=== PATIENT | female | born 1960 | race Caucasian/White ===

== ENCOUNTER 2021-02-11 18:06 | Emergency (ER) | payer OTHER ==
[~2021-02-11] VITALS: Ht 167.6 cm; Wt 70.6 kg
[2021-02-11 18:16] VITALS: BP 102/72
[2021-02-11] MEDS ORDERED: LIDOCAINE-MPF 1%, 5ML INFIL ONE (19:30)
[2021-02-11] MEDS ORDERED: DIPH,PERTUSS(ACELL),TET VAC/PF 0.5 ML IM-VACC ONE ×2 (19:30→19:40)
--- NOTE | 2021-02-11 19:45 | NUR ---
PT SITTING IN BED, NO ACUTE DISTRESS. WITH AN APPROX 5CM LAC TO RIGHT ORBITAL AREA. CLEAN EDGES AND STRAIGHT. PA IN TO NUMB LAC WITH LIDOCAINE 1%. PT TOLERATED WELL. LAC REPAIRED WITH SUTURES. EDGES WELL APPROXIMATED AND NO BLEEDING NOW.
--- NOTE | 2021-02-11 20:09 | NUR ---
DRESSING PLACED TO REPAIRED LAC, AND PT TOLERATED WELL. F/U AND D/C INSTRUCTIONS GIVEN TO PT AND SHE V/U. PT AMBULATORY AND D/C'D WITHOUT ISSUE.
== END 2021-02-11 20:12 | disposition home or self-care (01) ==
LOC: ED 20:08
DX: S01.111A Laceration without foreign body of right eyelid and periocular area, initial encounter (principal); S09.90XA Unspecified injury of head, initial encounter; X50.0XXA Overexertion from strenuous movement or load, initial encounter; Y93.89 Activity, other specified; Y92.410 Unspecified street and highway as the place of occurrence of the external cause; Y99.8 Other external cause status
CPT/HCPCS: 12051; 99284

== ENCOUNTER 2021-02-18 10:44 | Emergency (ER) | payer BC ==
[~2021-02-18] VITALS: Ht 167.6 cm; Wt 68.0 kg
[2021-02-18 10:47] VITALS: BP 111/53
--- NOTE | 2021-02-18 10:56 | NUR ---
This tech removed three sutures @ 6200
== END 2021-02-18 11:02 | disposition home or self-care (01) ==
LOC: ED 10:48
DX: S01.111D Laceration without foreign body of right eyelid and periocular area, subsequent encounter (principal); X58.XXXD Exposure to other specified factors, subsequent encounter
CPT/HCPCS: 99281